=== PATIENT | female | born 1990 | race Caucasian/White ===

== ENCOUNTER 2020-02-17 22:03 | Emergency (ER) | payer BC, MEDICARE ==
[~2020-02-17] VITALS: Ht 165.1 cm; Wt 92.3 kg
[~2020-02-17 22:03] MED LIST: CARV6.2541 PO; PENI250S14 PO; WARF-31 PO
[2020-02-17] MEDS ORDERED: IV RINGERS SOLUTION,LACTATED 1,000 ML IV SCH (22:23)
[2020-02-17] MEDS ORDERED: IOHEXOL 300 MG/ML 75 ML VIAL. IV ONE (23:00)
[2020-02-17 23:22] LABS: BASO % 0 % (0-3); EOS % 0 % (0-3); HEMATOCRIT 39.5 % (36.0-47.0); HEMOGLOBIN 12.6 g/dL (12.0-15.5); LYMPH # 0.7 x10^3/uL (1.0-4.8); LYMPH % 8 % (24-48); MEAN CORPUSCULAR HEMOGLOBIN 27 pg (25-35); MEAN CORPUSCULAR HGB CONC 32 g/dL (31-37); MEAN CORPUSCULAR VOLUME 85 fL (79-100); MONO # 0.6 x10^3/uL (0.0-1.1); MONO % 7 % (0-9); NEUT # 7.2 x10^3uL (1.8-7.7); NEUT % 84 % (31-73); PLATELET COUNT 262 x10^3/uL (140-400); RED BLOOD COUNT 4.66 x10^6/uL (3.50-5.40); RED CELL DISTRIBUTION WIDTH 14.8 % (11.5-14.5); WHITE BLOOD COUNT 8.5 x10^3/uL (4.0-11.0)
[2020-02-17 23:28] LABS: BILIRUBIN,URINE NEG (NEG); CLARITY,URINE CLEAR; COLOR,URINE YELLOW; GLUCOSE,URINE 100 mg/dL (NEG); NITRITE,URINE NEG (NEG); UROBILINOGEN,URINE 0.2 mg/dL (0.2 mg/dL)
[2020-02-17 23:29] LABS: BACTERIA,URINE 0 /HPF (0-FEW); RBC,URINE OCC /HPF (0-2); SQUAMOUS EPITHELIAL CELL,UR MOD /LPF
[2020-02-17 23:31] LABS: BARBITURATES NEG (NEG); BENZODIAZEPINES POS (NEG); CALCIUM 8.3 mg/dL (8.5-10.1); CANNABINOIDS NEG (NEG); COCAINE NEG (NEG); CREATININE 1.3 mg/dL (0.6-1.0); GFR 48.1; METHADONE NEG (NEG); OPIATES NEG (NEG); PHENCYCLIDINE NEG (NEG); POTASSIUM 4.2 mmol/L (3.5-5.1); PREG TEST PT QUAL NEGATIVE (NEG)
[2020-02-17 23:33] LABS: AMPHETAMINE/METHAMPHETAMINE NEG (NEG)
[2020-02-17 23:44] LABS: ALBUMIN 3.2 g/dL (3.4-5.0); DIRECT BILIRUBIN 0.4 mg/dL (0.0-0.2); MAGNESIUM 1.8 mg/dL (1.8-2.4); TOTAL BILIRUBIN 1.7 mg/dL (0.2-1.0); TOTAL PROTEIN 6.7 g/dL (6.4-8.2)
--- NOTE | 2020-02-18 00:19 | EKG ---
[address] [address] Test Date: 2020-02-17 Test Time: 22:37:16 Pat Name: JARRETT MOROCHO Department: Room: Gender: F [employer] Work[employer]: : 1990 Requested By: AGUEDA TORREZ Order Number: [id number] Reading MD: Measurements Intervals [place] Rate: 95 P: -90 OK: 224 QRS: 65 QRSD: 78 T: 175 QT: 398 QTc: 504 Interpretive Statements SINUS RHYTHM PROLONGED OK INTERVAL T ABNORMALITY IN ANTERIOR LEADS LATERAL LEADS INFEROLATERAL LEADS PROLONGED QT ABNORMAL ECG RI6.02 No previous ECG available for comparison
--- NOTE | 2020-02-18 01:08 | RAD ---
EXAM: CT OF THE CHEST, ABDOMEN AND PELVIS WITH CONTRAST. HISTORY: Hypotension after cardiac catheterization. TECHNIQUE: Computed tomography of the chest, abdomen and pelvis was performed after the intravenous administration of iodinated contrast. One or more of the following individualized dose reduction techniques were utilized for this examination: 1. Automated exposure control. 2. Adjustment of the mA and/or kV according to patient size. 3. Use of iterative reconstruction technique. COMPARISON: 11/30/2012. FINDINGS: Images of the upper abdomen reveal no acute abnormality. Bone windows reveal no suspicious lesions. Many small bilateral axillary and mediastinal lymph nodes are not pathologically enlarged. This may reflect edema. There is a small right pleural effusion. There is no pericardial effusion. The right ventricle is enlarged. The left ventricle appears somewhat compressed. There are changes of median sternotomy and mitral valve repair. A masslike filling in the left atrium defect adjacent to the interatrial septum measures 3.3 x 2.2 cm and likely reflects thrombus. Lung windows reveal no infiltrates. Heterogeneous hepatic attenuation is consistent with venous congestion. There is a small amount of ascites with retroperitoneal edema. The gallbladder, pancreas, adrenal glands, spleen and kidneys are unremarkable. There are no pathologically enlarged lymph nodes. A bilobed mass arising from the anterior aspect of the uterine fundus may represent an exophytic fibroid measuring 8.6 x 4.7 cm. It is heterogeneous suggesting regions of degeneration. The ovaries are unremarkable. There is respiratory motion artifact. The appendix is not inflamed. There is no small bowel obstruction. IMPRESSION: 1. A 3 cm filling defect in the left atrium adjacent to the interatrial septum and mitral valve prosthesis may represent a large vegetation or thrombus. 2. Dilated right ventricle with flattening of the interventricular septum. Correlate for acute right ventricular failure. 3. Small ascites. Changes of hepatic venous congestion. 4. 8.6 cm exophytic uterine fibroid. These findings were called to Dr. Clemens by Chalo Maldonado on 02/18/2020 at 1:05 AM. Electronically signed by: Carey Maldonado MD (02/18/2020 1:05 AM) [facility]
--- NOTE | 2020-02-18 01:55 | PHYS DOC ---
Past History Past Medical History: CHF, Diabetes, Other Past Medical History Developmental Delay Past Surgical History: Other Past Surgical History Mitral ginger. replacement Alcohol Use: None Drug Use: None General Adult EDM: Chief Complaint: HYPOTENSION HPI: HPI: " .. We just left ... she had a cath. today...but she had low blood pressure... and I called the team.. who did the cath..they said go to ED and get a Cath. to check for bleeding...".." We seen Dr. Cerna today.. " " She got that Mitral value... she had it now for 13 yrs...".." They did the cath..because she is short of breath all the time..." Patient is a 30 year old female who presents with complaints of hypotension after a heart cath today at at 0900 hrs.. Patient has had longstanding mitral valve problems and had a mitral valve replacement approximately 13 years ago. Patient follows at for her care and has been on Coumadin for anticoagulation up until prior catheterization today. Patient has not resumed her Coumadin. Patient has additional problems of developmental delay, DM. No recent travel outside the [place] area. No specific ill contacts. Patient follows with Dr. Spence locally for primary care issues. Review of Systems: Review of Systems: Constitutional: Denies fever or chills Eyes: Denies change in visual acuity HENT: Denies nasal congestion or sore throat Respiratory: Complains of shortness of breath Cardiovascular: Denies chest pain or edema . Complaints of hypotension GI: Denies abdominal pain, nausea, vomiting, bloody stools or diarrhea : Denies dysuria Musculoskeletal: Denies back pain or joint pain Integument: Denies rash Neurologic: Denies headache, focal weakness or sensory changes Endocrine: Denies polyuria or polydipsia Lymphatic: Denies swollen glands Psychiatric: Denies depression or anxiety Family History: Family History: Noncontributory to presentation Current Medications: Current Meds: Current Medications Medications (Trade) Dose Ordered Sig/[place] Start Time Stop Time Status Last Admin Dose Admin Iohexol (Omnipaque 300 Mg/ml) 75 ml 1X ONCE 02/17/20 23:00 02/17/20 23:01 DC 02/17/20 23:41 75 ML Lactated Ringer's 1,000 ml @ 1,000 mls/hr Q1H 02/17/20 22:23 02/17/20 23:22 DC 02/17/20 23:00 1,000 MLS/HR Allergies: Allergies: Allergies Coded Allergies Type Severity Reaction Last Updated Verified No Known Drug Allergies 12/05/14 No Physical Exam: PE: Constitutional: no acute distress, non-toxic appearance. [] HENT: Normocephalic, atraumatic, bilateral external ears normal, oropharynx moist, no oral exudates, nose normal. [] Eyes: PERRLA, EOMI, conjunctiva normal, no discharge. [] Neck: Normal range of motion, no tenderness, supple, no stridor. [] Cardiovascular: Tachycardia heart rate regular rhythm, mitral click Lungs & Thorax: Bilateral breath sounds equal apex on auscultation [] Abdomen: Bowel sounds normal, soft, no tenderness, no masses, no pulsatile masses. Obese Skin: Warm, dry, no erythema, no rash. [] Back: No tenderness, no CVA tenderness. [] Extremities: No tenderness, no cyanosis, no clubbing, ROM intact, no edema. No cording appreciated. Right groin cath site appears to be stable no large hematoma appreciated Neurologic: Alert and oriented X 3, normal motor function, normal sensory function, no focal deficits noted. [] Psychologic: Affect normal, judgement normal, mood normal. [] Current Patient Data: Labs: Laboratory Tests Test 02/17/20 22:45 02/17/20 22:50 Urine Collection Type Unknown Urine Color Yellow Urine Clarity Clear Urine pH 5.5 Urine Specific [place] >=1.030 Urine Protein 100 mg/dl (NEG-TRACE) Urine Glucose (UA) 100 mg/dL (NEG) Urine Ketones (Stick) Neg mg/dL (NEG) Urine Blood Mod (NEG) Urine Nitrite Neg (NEG) Urine Bilirubin Neg (NEG) Urine Urobilinogen Dipstick 0.2 mg/dL (0.2 mg/dL) Urine Leukocyte Esterase Neg (NEG) Urine RBC Occ /HPF (0-2) Urine WBC 1-4 /HPF (0-4) Urine Squamous Epithelial Cells Mod /LPF Urine Bacteria 0 /HPF (0-FEW) Sodium Level 136 mmol/L (136-145) Potassium Level 4.2 mmol/L (3.5-5.1) Chloride Level 102 mmol/L (98-107) Carbon Dioxide Level 21 mmol/L (21-32) Anion Gap 13 (6-14) Blood Urea Nitrogen 15 mg/dL (7-20) Creatinine 1.3 mg/dL (0.6-1.0) H Estimated GFR (Cockcroft-Gault) 48.1 Glucose Level 246 mg/dL (70-99) H Calcium Level 8.3 mg/dL (8.5-10.1) L Magnesium Level 1.8 mg/dL (1.8-2.4) Total Bilirubin 1.7 mg/dL (0.2-1.0) H Direct Bilirubin 0.4 mg/dL (0.0-0.2) H Aspartate Amino Transferase (AST) 22 U/L (15-37) Alanine Aminotransferase (ALT) 28 U/L (14-59) Alkaline Phosphatase 48 U/L (46-116) Troponin I Quantitative < 0.017 ng/mL (0-0.055) BF-Gvh-J-Type Natriuretic Peptide 2521 pg/mL (0-124) H Total Protein 6.7 g/dL (6.4-8.2) Albumin 3.2 g/dL (3.4-5.0) L Lipase 132 U/L (73-393) Serum Test, Qualitative Negative (NEG) Urine Opiates Screen Neg (NEG) Urine Methadone Screen Neg (NEG) Urine Barbiturates Neg (NEG) Urine Phencyclidine Screen Neg (NEG) Urine Amphetamine/Methamphetamine Neg (NEG) Urine Benzodiazepines Screen Pos (NEG) Urine Cocaine Screen Neg (NEG) Urine Cannabinoids Screen Neg (NEG) Urine Ethyl Alcohol Neg (NEG) White Blood Count 8.5 x10^3/uL (4.0-11.0) Red Blood Count 4.66 x10^6/uL (3.50-5.40) Hemoglobin 12.6 g/dL (12.0-15.5) Hematocrit 39.5 % (36.0-47.0) Mean Corpuscular Volume 85 fL (79-100) Mean Corpuscular Hemoglobin 27 pg (25-35) Mean Corpuscular Hemoglobin Concent 32 g/dL (31-37) Red Cell Distribution Width 14.8 % (11.5-14.5) H Platelet Count 262 x10^3/uL (140-400) Neutrophils (%) (Auto) 84 % (31-73) H Lymphocytes (%) (Auto) 8 % (24-48) L Monocytes (%) (Auto) 7 % (0-9) Eosinophils (%) (Auto) 0 % (0-3) Basophils (%) (Auto) 0 % (0-3) Neutrophils # (Auto) 7.2 x10^3uL (1.8-7.7) Lymphocytes # (Auto) 0.7 x10^3/uL (1.0-4.8) L Monocytes # (Auto) 0.6 x10^3/uL (0.0-1.1) Eosinophils # (Auto) 0.0 x10^3/uL (0.0-0.7) Basophils # (Auto) 0.0 x10^3/uL (0.0-0.2) Prothrombin Time 12.6 SEC (9.4-11.4) H Prothrombin Time INR 1.2 (0.9-1.1) H Activated Partial Thromboplast Time 22 SEC (23-33) L Vital Signs: Vital Signs Date Time Temp Pulse Resp B/P (MAP) Pulse Ox O2 Delivery O2 Flow Rate FiO2 02/17/20 22:03 97.7 98 18 91/40 (57 96 Room Air EKG: EKG: My interpretation of EKG shows a sinus rhythm at 95 bpm. There is prolonged VA and QT interval. [] No findings acute STEMI or contralateral changes. Radiology/Procedures: Radiology/Procedures: [address] [address] IMAGING REPORT Signed PATIENT: JARRETT MOROCHO NACCOUNT: [id number] : 1990 LOCATION: ER AGE: 30 SEX: F EXAM STATUS: REG ER ORD. PHYSICIAN: AGUEDA CLEMENS MD REASON: cardiac cath, hypotension, cardiology want eval for perforation PROCEDURE: CT CHEST ABDOMEN W/CONTRAST EXAM: CT OF THE CHEST, ABDOMEN AND PELVIS WITH CONTRAST. HISTORY: Hypotension after cardiac catheterization. TECHNIQUE: Computed tomography of the chest, abdomen and pelvis was performed after the intravenous administration of iodinated contrast. One or more of the following individualized dose reduction techniques were utilized for this examination: 1. Automated exposure control. 2. Adjustment of the mA and/or kV according to patient size. 3. Use of iterative reconstruction technique. COMPARISON: 11/30/2012. FINDINGS: Images of the upper abdomen reveal no acute abnormality. Bone windows reveal no suspicious lesions. Many small bilateral axillary and mediastinal lymph nodes are not pathologically enlarged. This may reflect edema. There is a small right pleural effusion. There is no pericardial effusion. The right ventricle is enlarged. The left ventricle appears somewhat compressed. There are changes of median sternotomy and mitral valve repair. A masslike filling in the left atrium defect adjacent to the interatrial septum measures 3.3 x 2.2 cm and likely reflects thrombus. Lung windows reveal no infiltrates. Heterogeneous hepatic attenuation is consistent with venous congestion. There is a small amount of ascites with retroperitoneal edema. The gallbladder, pancreas, adrenal glands, spleen and kidneys are unremarkable. There are no pathologically enlarged lymph nodes. A bilobed mass arising from the anterior aspect of the uterine fundus may represent an exophytic fibroid measuring 8.6 x 4.7 cm. It is heterogeneous suggesting regions of degeneration. The ovaries are unremarkable. There is respiratory motion artifact. The appendix is not inflamed. There is no small bowel obstruction. IMPRESSION: 1. A 3 cm filling defect in the left atrium adjacent to the interatrial septum and mitral valve prosthesis may represent a large vegetation or thrombus. 2. Dilated right ventricle with flattening of the interventricular septum. Correlate for acute right ventricular failure. 3. Small ascites. Changes of hepatic venous congestion. 4. 8.6 cm exophytic uterine fibroid. These findings were called to Dr. Clemens by Chalo Maldonado on 02/18/2020 at 1:05 AM. Electronically signed by: Carey Maldonado MD (02/18/2020 1:05 AM) [facility] DICTATED AND SIGNED BY: ARACELI MALDONADO MD DATE: 02/18/20 0105 CC: AGUEDA CLEMENS MD; MARY SPENCE MD ~ Heart Score: HEART Score for Chest Pain: HEART Score for Chest Pain Response (Comments) Value ECG Normal 0 Age < 45 0 Risk Factors 1 or 2 Risk Factors 1 Troponin < Normal Limit 0 Total 1 Risk Factors: Risk Factors: DM, Current or recent (<one month) smoker, HTN, HLP, family history of CAD, obesity. Risk Scores: Score 0 - 3: 2.5% MACE over next 6 weeks - Discharge Home Score 4 - 6: 20.3% MACE over next 6 weeks - Admit for Clinical Observation Score 7 - 10: 72.7% MACE over next 6 weeks - Early Invasive Strategies Course & Med Decision Making: Course & Med Decision Making Pertinent Labs and Imaging studies reviewed. (See chart for details) Discussed presentation, testing and tx. plan with [facility]. Pt.accepted at - Dr. Schwartz. Advised no anticoagulation at this time. Impression: 1. Rt. Heart Failure 2. 3 CM filling defec Lt Atrium Vegetation or Thrombus 3. Dilated Rt. Ventricle with Flattening interventricular septum 4. Developmental Delay 5. DM- glucose 246 [] Dragon Disclaimer: Dragon Disclaimer: This electronic medical record was generated, in whole or in part, using a voice recognition dictation system. Departure Departure: Referrals: MARY SPENCE MD (PCP) Dragon Disclaimer This chart was dictated in whole or in part using Voice Recognition software in a busy, high-work load, and often noisy Emergency Department environment. It may contain unintended and wholly unrecognized errors or omissions. Dragon Disclaimer This chart was dictated in whole or in part using Voice Recognition software in a busy, high-work load, and often noisy Emergency Department environment. It may contain unintended and wholly unrecognized errors or omissions. AGUEDA CLEMENS MD Feb 18, 2020 01:55
[2020-02-18 02:05] VITALS: BP 119/87
== END 2020-02-18 02:23 | disposition short-term general hospital (02) ==
LOC: ER 22:03
DX: I50.9 Heart failure, unspecified (principal); E11.9 Type 2 diabetes mellitus without complications; R62.50 Unspecified lack of expected normal physiological development in childhood; Q21.0 Ventricular septal defect
CPT/HCPCS: 36415; 71260; 74160; 80048; 80076; 80307; 81001; 83690; 83735; 83880; 84484; 84703; 85025; 85610; 85730; 86850; 86900; 86901; 93005; 96360; 99285; J7120; Q9967

== ENCOUNTER → 2020-03-16 | Outpatient (CLI) | payer MEDICARE ==
[2020-02-18 02:05] VITALS: BP 119/87
--- NOTE | 2020-03-16 16:50 | RAD ---
INDICATION: Reason: COUGH / Spl. Instructions: / History: COMPARISON: November 2012 FINDINGS: 2 view of chest obtained. Enlarged cardiomediastinal silhouette with poststernotomy changes. Device projecting over the left side of the cardiac silhouette. Artificial valve. Patchy opacities in the bilateral lungs IMPRESSION: * Patchy opacities of bilateral lungs. Could be secondary to bilateral infiltrate with a component of edema also within the differential. * Postoperative changes to the mediastinum with enlarged cardiac silhouette. Electronically signed by: Sarbjit Howell MD (03/16/2020 4:13 PM) [id number]
== END ==
LOC: DXRAD 14:40
DX: R05 Cough (principal); D15.1 Benign neoplasm of heart; Z98.890 Other specified postprocedural states; Z95.2 Presence of prosthetic heart valve
CPT/HCPCS: 71046

== ENCOUNTER 2020-03-18 02:11 | Emergency (ER) | payer MEDICARE ==
[~2020-03-18] VITALS: Ht 165.1 cm; Wt 92.3 kg
--- NOTE | 2020-03-18 02:18 | PHYS DOC ---
Past History Past Medical History: Anemia, Anxiety, CHF, Diabetes, Other Additional Past Medical Histor: mitral valve prob,rheumatic fever,borderline diabetes,poor historian, Past Medical History Rheumatic heart dz, cognitive developmental delay Past Surgical History: Other Additional Past Surgical Histo: mitral valve replacement(7 yrs ago) and again 02/20/2020- Alcohol Use: None Drug Use: None General Adult EDM: Chief Complaint: UPPER EXTREMITY PAIN HPI: HPI: ".. I got this pain... in my right here... where .. they had the IV... it still hurts.. " Patient is a 30 year old female who presents with above hx and complaints of pain in Rt. antecubital site. Site of pain is a previous IV site from her mitral valve replacement surgery at on 02/19/2021. Site is not inflamed. There is a small area of ecchymosis. But no cording appreciated. No striations. Distal neurovascular intact. Patient is able to flex elbow without problem. Patient has significant medical history of CHF, history of right heart failure, diabetes, dilated right ventricle, developmental delay, mitral valve and anemia. Patient is on chronic Coumadin anticoagulation. Patient's primary care is Dr. Spence. Patient follows at for her cardiac issues. No recent travel. No specific ill contacts. No history immunosuppression. No history of previous MRSA. Review of Systems: Review of Systems: Constitutional: Denies fever or chills Eyes: Denies change in visual acuity HENT: Denies nasal congestion or sore throat Respiratory: Denies cough or shortness of breath Cardiovascular: Denies chest pain or edema GI: Denies abdominal pain, nausea, vomiting, bloody stools or diarrhea : Denies dysuria Musculoskeletal: Denies back pain or joint pain Integument: Complains of painful right antecubital IV site Neurologic: Denies headache, focal weakness or sensory changes Endocrine: Denies polyuria or polydipsia Lymphatic: Denies swollen glands Psychiatric: Denies depression or anxiety Family History: Family History: Noncontributory to presentation Current Medications: Current Meds: See nursing for home meds Allergies: Allergies: Allergies Coded Allergies Type Severity Reaction Last Updated Verified No Known Drug Allergies 12/05/14 No Physical Exam: PE: Constitutional: no acute distress, non-toxic appearance. [] HENT: Normocephalic, atraumatic, bilateral external ears normal, oropharynx moist, no oral exudates, nose normal. [] Eyes: PERRLA, EOMI, conjunctiva normal, no discharge. Glasses Neck: Normal range of motion, no tenderness, supple, no stridor. [] Cardiovascular:Heart rate regular rhythm, no murmur , does have a mitral click Lungs & Thorax: Bilateral breath sounds equal apex with scattered wheezes bilateral bases and crackles auscultation. Sternotomy incision sites are healing well no obvious inflammation or drainage. Abdomen: Bowel sounds normal, soft, no tenderness, no masses, no pulsatile masses. Old surgery scars. Obese. Mild fluid wave. Skin: Warm, dry, no erythema, no rash. Complains of tenderness right antec ubital IV site-as per HPI Back: No tenderness, no CVA tenderness. [] Extremities: No tenderness, no cyanosis, no clubbing, ROM intact, trace ankle edema . No cording appreciated Neurologic: Alert and oriented X 3, moves all extremities on request, has distal sensory,, no focal deficits noted. [] Psychologic: Affect anxious, developmental delay, mood normal. [] EKG: EKG: [] Radiology/Procedures: Radiology/Procedures: [] Heart Score: Risk Factors: Risk Factors: DM, Current or recent (<one month) smoker, HTN, HLP, family history of CAD, obesity. Risk Scores: Score 0 - 3: 2.5% MACE over next 6 weeks - Discharge Home Score 4 - 6: 20.3% MACE over next 6 weeks - Admit for Clinical Observation Score 7 - 10: 72.7% MACE over next 6 weeks - Early Invasive Strategies Course & Med Decision Making: Course & Med Decision Making Pertinent Labs and Imaging studies reviewed. (See chart for details) Did apply a small amount of lidocaine to the site and dressing applied. Use warm moist salt or Epson salt compresses 4 times a day. Then up massage in Polysporin 4 times a day. Monitor for infection. Return if any concerns. Follow-up keep follow-up with cardiology in a cardiothoracic surgery at as planned. Keep follow-up with primary care. Impression: 1, Mild inflammation of Rt. antecubital IV site Dragon Disclaimer: Dragon Disclaimer: This electronic medical record was generated, in whole or in part, using a voice recognition dictation system. Departure Departure: Referrals: MARY SPENCE MD (PCP) [place] Disclaimer This chart was dictated in whole or in part using Voice Recognition software in a busy, high-work load, and often noisy Emergency Department environment. It may contain unintended and wholly unrecognized errors or omissions. AGUEDA TORREZ MD Mar 18, 2020 02:18
[2020-03-18 02:29] VITALS: BP 115/71
[2020-03-18] MEDS ORDERED: ACETAMINOPHEN 500 MG TABLET PO ONE (03:30)
[2020-03-18] MEDS ORDERED: LIDOCAINE/EPI/TETRACAINE TOPICAL GEL 3 ML. TP ONE (03:30)
== END 2020-03-18 03:15 | disposition home or self-care (01) ==
LOC: ER 02:11
DX: L08.89 Other specified local infections of the skin and subcutaneous tissue (principal); M79.601 Pain in right arm; I50.9 Heart failure, unspecified; E11.9 Type 2 diabetes mellitus without complications; Z79.01 Long term (current) use of anticoagulants
CPT/HCPCS: 99282

== ENCOUNTER → 2021-03-11 | Outpatient (CLI) | payer MEDICARE ==
--- NOTE | 2021-03-11 15:02 | RAD ---
EXAM: ULTRASOUND SOFT TISSUE NECK CLINICAL HISTORY: Reason: ENLARGED THYROID / Spl. Instructions: / History: COMPARISON: None available. TECHNIQUE: Ultrasound examination of the thyroid gland was performed FINDINGS: The thyroid is diffusely enlarged and heterogeneous and lobulated. The right lower thyroid measures 5 .0 x 2.3 x 2.2 cm. The left lower thyroid measures 5.0 x 2.0 x 1.9 cm. The isthmus measures 6.5 mm in thickness. There is a small hypoechoic nodule in the mid to upper left lobe of thyroid that measures 8 x 8 x 7 m m and there is a hypoechoic nodule in the isthmus on the left that measures 8 x 6 0.4 L. There is a f ew smaller nodules as well. IMPRESSION: Enlarged thyroid. Recommend correlation with TSH. No suspicious nodules. Electronically signed by: Mann Rojas III, MD (03/11/2021 2:59 PM) [facility]
== END ==
LOC: US 10:41
PROVIDERS: ATTEND Family Medicine
DX: E04.9 Nontoxic goiter, unspecified (principal)
CPT/HCPCS: 76536